=== PATIENT | female | born 1970 | race Two or more races ===

== ENCOUNTER 2016-10-08 10:04 | Emergency (ER) | payer OTHER ==
[~2016-10-08] VITALS: Ht 157.5 cm; Wt 63.5 kg
[2016-10-08 10:16] VITALS: BP 161/66
== END 2016-10-08 13:08 | disposition home or self-care (01) ==
LOC: ER 10:07
DX: S00.03XA Contusion of scalp, initial encounter (principal); Z88.8 Allergy status to other drugs, medicaments and biological substances; V09.20XA Pedestrian injured in traffic accident involving unspecified motor vehicles, initial encounter; Y93.89 Activity, other specified; Y99.8 Other external cause status; Y92.488 Other paved roadways as the place of occurrence of the external cause
CPT/HCPCS: 70450; 81025